=== PATIENT | male | born 1955 | race Caucasian/White ===

== ENCOUNTER 2022-10-20 23:06 | Emergency (ER) | payer MEDICARE, SELFPAY ==
--- NOTE | 2022-10-20 23:18 | ECG_ITS ---
Measurements Intervals [place] Rate: 59 P: 26 MO: 171 QRS: 53 QRSD: 91 T: 67 QT: 395 QTc: 393 Interpretive Statements SINUS BRADYCARDIA BORDERLINE ECG NO PREVIOUS ECG AVAILABLE FOR COMPARISON Electronically Signed On 10-21-2022 8:20:26 CDT by Bhanu Winslow D.O.
[2022-10-20 23:50] VITALS: BP 144/74; PULSE 55; RESP 15; TEMP 36.6; O2SAT 100
[2022-10-21 00:05] LABS: Basophils Absolute Auto 0.1 K/mm3 (0.0-0.1); Basophils Percent Auto 0.9 % (0.2-1.2); Eosinophils Absolute Auto 0.3 K/mm3 (0-0.3); Eosinophils Percent Auto 2.9 % (0-4.4); Hematocrit 44.4 % (42.0-52.0); Hemoglobin 14.1 g/dL (14.0-18.0); Immature Granulocyte Absolute 0.03 K/mm3 (0.00-0.031); Immature Granulocyte Percent A 0.3 % (0-0.5); Lymphocytes Absolute Auto 2.88 K/mm3 (0.9-3.2); Mean Corpuscular HGB Conc 31.8 g/dl (32-36); Mean Corpuscular Hemoglobin 28.8 pg (26-34); Mean Corpuscular Volume 90.6 fl (80-100); Mean Platelet Volume 9.4 fl (7.4-10.4); Monocytes Absolute Auto 1.2 K/mm3 (0.1-0.6); Monocytes Percent Auto 11.9 % (2.6-8.5); Neutrophils Absolute Auto 5.8 K/mm3 (1.3-6.7); Platelet Count Result 261 k/mm3 (150-375); White Blood Count 10.3 K/mm3 (4.5-10.0)
[2022-10-21 00:15] LABS: Alanine Aminotransferase 26 U/L (6-50); Albumin Level 4.2 g/dL (3.5-5.1); Alkaline Phosphatase 83 U/L (38-126); Anion Gap 7 mmol/L (8-16); Aspartate Amino Transferase 27 U/L (17-59); Bilirubin,Total 0.5 mg/dL (0.2-1.3); Blood Urea Nitrogen 16 mg/dL (9-20); Calcium 8.6 mg/dL (8.4-10.2); Carbon Dioxide 24 mmol/L (22-30); Chloride 107 mmol/L (98-107); Estimated CRCL calculation 51 ml/min; Estimated Glomerular Filt Rate > 60; Glucose 116 mg/dL (65-110); Lipase 224 U/L (23-300); Potassium 3.9 mmol/L (3.4-5.0); Sodium 138 mmol/L (137-145)
[2022-10-21 01:26] LABS: Appearance Urine Clear (Clear); Bilirubin Urine Negative (Negative); Blood Urine Negative (Negative); Color Urine Yellow (Yellow); Glucose Urine UA Negative (Negative); Ketones Urine Trace mg/dL (Negative); Leukocyte Esterase Ur Negative LEU/UL (Negative); Nitrate Urine Negative (Negative); Protein Urine Negative (Negative); Specific Grav Ur 1.026 (1.001-1.035); Urobilinogen Urine 0.2 mg/dL (<2.0)
[2022-10-21 01:42] LABS: Add Urine Microscopic? NO
--- NOTE | 2022-10-21 03:26 | PC.NURSE ---
Agree with triage note. Pt states his pain subsides x2 hours ago. Pt states he has UC which was causing the blood in his stool.
[2022-10-21 03:34] VITALS: BP 135/75; PULSE 66; RESP 14; O2SAT 100
--- NOTE | 2022-10-21 05:08 | ED.ABDPAIN ---
HPI - Abdominal Pain General Chief Complaint: Abdominal Pain Stated Complaint: Lower Chest Pain Time Seen by Provider: 10/21/22 04:33 Source: patient Limitations: no limitations History of Present Illness HPI narrative: PAtient presents with epigastric burning after eating [employer] which he rarely does and it has since resolved and not returned and he feels well now. Admits to cardiac work up recently. Denies chest pain, shortness of breath, numbness, weakness, vomiting, diarrhea, nausea, diaphoresis, cough. No melena or hematochezia. MD elicited complaint: abdominal pain Onset (ago): hour(s) Pain Consistency: now resolved Location: epigastric Severity: mild Quality: burning Radiation: none Migration to: no migration Exacerbating factors: nothing Relieving factors: medication (tums) Context: confirms history of similar episodes (when eating spicy food before laying down at night.) Associated symptoms: denies other symptoms Treatments prior to arrival: antacids Related Data Allergies Allergy/AdvReac Type Severity Reaction Status Date / Time Penicillins Allergy Rash Verified 10/21/22 03:32 Review of Systems Review of Systems: A 10 system review of systems was completed on the patient and is negative except for what is stated in the HPI. Nursing and ancillary documentation was reviewed. PMFSH Comments At time of signature, I have reviewed and agree with nursing past medical, surgical, social and family history unless otherwise noted. Please see the nursing chart for further information. There is no relevant family history pertinent to the presenting complaint. Admits to a history of Ulcerative Colitis for which he takes mesalamine suppositories. No other medications. NKDA. No smoking or alcohol or illicit drug use. No surgeries. No other medical history. Exam Narrative: CONST: No acute distress. Well nourished. HENMT: Head is normocephalic and atraumatic. Moist mucous membranes. No posterior oropharynx erythema. EYES: No conjunctival icterus, injection, or pallor. PERRL. NECK: No meningeal signs. RESP: Able to speak in full sentences. Normal respiratory effort. CTAB. CARDIO: Regular rate. Regular rhythm. 2+ DP and radial pulses bilaterally. GI: Nondistended. No tenderness to palpation. Soft. No rebound or guarding or rigidity. Negative Casey's sign. No McBurney point TTP. No palpable masses or hernia. : No CVA tenderness to palpation. SKIN: No rashes or lesions noted on exposed skin. NEURO: Oriented x3. Moves all extremities. EXTREM: No pedal edema. PSYCH: Normal affect. Course Vital Signs Vital signs: Vital Signs Temperature 97.9 F 10/20/22 23:50 Pulse Rate 55 L 10/20/22 23:50 Respiratory Rate 15 10/20/22 23:50 Blood Pressure 144/74 H 10/20/22 23:50 Pulse Oximetry 100 10/20/22 23:50 Oxygen Delivery Room Air 10/20/22 23:50 Temperature 97.9 F 10/20/22 23:50 Pulse Rate 66 10/21/22 03:34 Respiratory Rate 14 10/21/22 03:34 Blood Pressure 135/75 10/21/22 03:34 Pulse Oximetry 100 10/21/22 03:34 Oxygen Delivery Room Air 10/20/22 23:50 MDM - Abdominal Pain MDM Narrative Medical decision making narrative: Presentation consistent with acute epigastric abdominal pain that has since resolved. Differential diagnosis includes GERD, gastritis, pancreatitis. Abdominal exam without peritoneal signs. No evidence of acute abdomen at this time. Well appearing. Low suspicion for acute hepatobiliary disease (includng acute cholecystitis), acute pancreatitis, PUD (including perforation), acute infectious processes (pneumonia, hepatitis, pyelonephritis), atypical appendicitis, vascular catastrophe, bowel obstruction or viscus perforation. Presentation not consistent with other acute, emergent causes of abdominal pain at this time. EKG obtained and reviewed, labs obtained and reviewed. Patient administered a GI cocktail and famotidine 20 mg IVP. Patient had a full cardia
--- NOTE | 2022-10-21 05:26 | PC.NURSE ---
This RN spoke with Dr. Lawson per pt not having IV access upon medical technologist prn upon dc. Dr. Lawson verbal ordered pepcid PO 20 mg. This RN confirmed medication order.
[2022-10-21] MEDS: FAMOTIDINE 20 MG TABLET PO (05:31)
[2022-10-21] MEDS: BELLADONNA ALK/PHENOB ELIX 10 ML, MAG HYDROX/ALUMINUM HYD/SIMETH 30 ML, LIDOCAINE HCL 2... PO (05:32)
--- NOTE | 2022-10-21 05:38 | PC.NURSE ---
This RN administered lidocaine 10mL along with the magnesium/belladonna combination upon dc. Per EPD Dr. Lawson.
== END 2022-10-21 05:41 | disposition home or self-care (01) ==
PROVIDERS: Emergency Provider Student in an Organized Health Care Education/Training Program
DX: K21.9 Gastro-esophageal reflux disease without esophagitis (principal); K29.70 Gastritis, unspecified, without bleeding; K51.90 Ulcerative colitis, unspecified, without complications; R00.1 Bradycardia, unspecified
CPT/HCPCS: 36415; 80053; 81003; 83690; 85025; 93005; 99283; A9270